=== PATIENT | male | born 1955 | race Caucasian/White ===

== ENCOUNTER 2025-03-07 13:58 | Outpatient (RCR) | payer MEDICARE, SELFPAY ==
--- NOTE | 2025-03-07 16:05 | OPREHPOC ---
Outpatient Therapy Plan of Care This is a Multidisciplinary Plan of Care that may contain components documented by all disciplines (PT, OT, and ST.) PT Problem 1 PT Problem #1 Knowledge Deficit PT Goal 1 Goal / Goal Update Independent and compliant with HEP. Target Visit 2 PT Problem 2 PT Problem #2 Pain PT Goal 1 Goal / Goal Update Pt to report no more than 2/10 pain with activity. Target Visit 8 PT Problem 3 PT Problem #3 Impaired Functional Mobility PT Goal 1 Goal / Goal Update Pt to report 20% reduction in perceived disability on oswestry. Pt to be able to return to work without interference from pain. Target Visit 8
--- NOTE | 2025-03-09 10:19 | PTOPEVAL1 ---
Assessment and note entered by Kelley Brower, PT Evaluation Information Assessment Status Evaluation ICD-10 Condition Codes (PT) Pain in low back M54.50,Pain in left hip M25.552 Other ICD-10 Condition Codes ( G89.29, M46.1, M47.816 PT) Onset 02/05/25 Subjective Information Pt reports onset of pain in his L hip one month ago. The pain is sharp in nature and pt states he feels like he's getting stabbed whenever he walks, gets out of bed and lifts heavy loads (pt lifts min. 50lbs at work but is currently not working). He notes his pain varies from the groin all the way around to the back of the hip depending on how he's moving. He does also note pain in his low back in addition to the hip when rolling in/out of bed. He has been using heat and ice and is also currently taking steroids from his MD. Reported Pain Level Pain Score 0: Self Report Pain Score 0: Self Report Assessment PT Clinical Summary Mr. Russo is a 69 yo male who enters the PT clinic for skilled evaluation of low back and L hip pain. He demonstrates good hip strength but despite this has reproduction of pain with walking and standing/supine exercise. His symptoms reside in the hip and are located posteriorly, however pt also has pain in anterior/lateral and groin areas of the hip. It is likely his symptoms could be originating from both the low back/SIJ and the hip joint. He will benefit from skilled PT to reduce pain and improve stability of the low back and hip. Plan of Care Interventions Electrical Stimulation,Gait Training,Hot Pack/Cold Pack,Manual Therapy,Neuro Re-education,Patient/ Caregiver Education,Therapeutic Activities, Therapeutic Exercise,Self-Care/Home Management PT Services Indicated Yes Treatment Frequency and 2x/week for 6 visits Duration These treatments will address the objective and functional deficits as defined above. The patient will be advanced safely and appropriately in order for the patient to progress towards his/her prior level of function. Additional exercises will be introduced and as well as a comprehensive home exercise program upon discharge, if needed, ?to ensure carryover of functional gains achieved in the clinic. This treatment plan has been reviewed and agreement upon by the patient.
--- NOTE | 2025-03-28 10:48 | OPREHPOC ---
Outpatient Therapy Plan of Care This is a Multidisciplinary Plan of Care that may contain components documented by all disciplines (PT, OT, and ST.) PT Problem 1 PT Problem #1 Knowledge Deficit PT Goal 1 Goal / Goal Update Independent and compliant with HEP. Target Visit 2 Progress Met PT Problem 2 PT Problem #2 Pain PT Goal 1 Goal / Goal Update Pt to report no more than 2/10 pain with activity. Target Visit 8 Progress Not Met PT Problem 3 PT Problem #3 Impaired Functional Mobility PT Goal 1 Goal / Goal Update Pt to report 20% reduction in perceived disability on oswestry. -met Pt to be able to return to work without interference from pain. -not met Target Visit 8 Progress Partially Met
--- NOTE | 2025-03-28 10:48 | PTOPPROG ---
Assessment and note entered by Kelley Brower, PT Evaluation Information Assessment Status Progress ICD-10 Condition Codes (PT) Pain in low back M54.50,Pain in left hip M25.552 Other ICD-10 Condition Codes ( G89.29, M46.1, M47.816 PT) Onset 02/05/25 Subjective Information Mr. Russo presents for his 6th PT visit for low back and hip pain today. He reports that he did think PT would help him when he first started but he does note feeling like his sciatic pain has improved and rarely bothers him now. He does still note one area in his low back in the SIJ region that still irritates him as well has his groin pain from hip OA. He reports he's going to the doctor on Friday to get a steroid shot and he would like to hold therapy at this time to see if the shot helps his pain. Assessment PT Clinical Summary Mr. Russo has attended 6 skilled PT visits addressing low back and L hip pain. While his pain is still present he does note it's decreased and verbalizes some benefit from PT. His pain still causes difficulty with squatting, lifting, and long distance walking and he has not yet returned to work due to his pain. He is returning to the doctor on Friday to get a steroid shot and will hold therapy at this time pending further evaluation of the low back and hip by MD. Plan of Care Interventions Electrical Stimulation,Gait Training,Hot Pack/Cold Pack,Manual Therapy,Neuro Re-education,Patient/ Caregiver Education,Therapeutic Activities, Therapeutic Exercise,Self-Care/Home Management PT Services Indicated Yes Treatment Frequency and Hold therapy at this time pending further Duration evaluation by MD These treatments will address the objective and functional deficits as defined above. The patient will be advanced safely and appropriately in order for the patient to progress towards his/her prior level of function. Additional exercises will be introduced and as well as a comprehensive home exercise program upon discharge, if needed, ?to ensure carryover of functional gains achieved in the clinic. This treatment plan has been reviewed and agreement upon by the patient.
--- NOTE | 2025-06-29 08:58 | PCPTNOTE ---
Mr. Russo was seen for 6 skilled PT visits for lower back, SIJ and hip pain. He made only minimal progress during his time in PT and was holding on PT pending return to the doctor. Per phone call with his , pt had gone back to the doctor and ended up getting an RFA in May. She stated that he is doing better and will discontinue PT. Kelley Brower, [email or web address]
== END 2025-06-05 23:59 | disposition home or self-care (01) ==
LOC: CHSPT 13:58
DX: M54.50 Low back pain, unspecified (principal); G89.29 Other chronic pain; M46.1 Sacroiliitis, not elsewhere classified; M47.816 Spondylosis without myelopathy or radiculopathy, lumbar region
CPT/HCPCS: 97110; 97112; 97150; 97161; 97530